=== PATIENT | male | born 1995 ===

== ENCOUNTER → 2024-06-24 17:06 | Outpatient (BNVA) | payer OTHER, SELFPAY | PROVIDERS: Visit Provider Family Medicine | DX: Z20.2 Contact with and (suspected) exposure to infections with a predominantly sexual mode of transmission (principal); Z72.51 High risk heterosexual behavior | CPT/HCPCS: 86592; 87491; 87591; 87661; 87806 ==

== ENCOUNTER 2025-02-07 12:49 | Emergency (ER) | payer OTHER, SELFPAY ==
--- OUTSIDE RECORDS SUMMARY | 2023-11-30 04:15 | XMS_ITS ---
Author Organization [facility] Address [address] [place] [address] Care Team Providers Care Water Rights Specialist Name Role Phone Higinio Levin MD Primary Care Provider Kristan Hernandez [phone] Encounters Encounter Location Date Provider Diagnosis [facility] [address] [place] [address], [place] [address] 11/30/2023 Kristan Butts Plan Of Treatment No Information Progress Notes * VANESSA RHOADESDOB:1995 (29 yo M)Acc No.[id number]:11/30/2023 Patient: VANESSA BUITRAGO Provider: Sharon Butts MD :1995 A ge:28 Y S ex:Male Date:11/30/2023 Address:[address] [place] [address], [id number] Pcp:Higinio Levin MD Check In:10:04 AM CSTCheck O ut:10:07 AM BRICK PITCHER * Electronic signature of Laura Butts MD on 02/07/2025 at 12:54 PM BRICK PITCHER Sign off status: Pending * Provider: Sharon Butts MD Date: Generated for Printi ng/Faxing/eTransmitting on: 1 04/10/2024 12:54 PM BRICK PITCHER
--- OUTSIDE RECORDS SUMMARY | 2023-12-21 09:00 | XMS_ITS ---
Author Organization [facility] Address [address] [facility] [place] [address] Care Team Providers Care Marker Hand Name Role Phone Higinio Levin MD Primary Care Provider Kristan Hernandez [phone] Encounters Encounter Location Date Provider Diagnosis [facility] [address] [place] [address], [place] [address] 12/21/2023 Kristan Butts Plan Of Treatment No Information Progress Notes * VANESSA RHOADESDOB:1995 (29 yo M)Acc No.[id number]:12/21/2023 Patient: VANESSA BUITRAGO Provider: Sharon Butts MD :1995 A ge:28 Y S ex:Male Date:12/21/2023 Address:[address] [place] [address], [id number] Pcp:Higinio Levin MD Check In:03:01 PM OPS ANALYST Billing Information: * Procedure Codes: * Electronic signature of Laura Butts MD on 02/07/2025 at 12:53 PM OPS ANALYST Sign off status: Pending * Provider: Sharon Butts MD Date: 02/19/2023 Generated for Janaki ng/Faxing/eTransmitting on: 04/10/2024 12:53 PM OPS ANALYST
--- OUTSIDE RECORDS SUMMARY | 2025-01-21 03:00 | XMS_ITS ---
Author Organization [facility] Main [place] [address] Care Team Providers Care Battalion Chief Name Role Phone WILBER TORRES Primary Care Provider REASON FOR VISIT LAST PE 01/18/24 Encounters Encounter Location Date Provider Diagnosis [facility] [place] [address] [place] [address] 01/21/2025 WILBER TORRES Plan Of Treatment Next Appt Details Provider Name:WILBER BABIN S, 03/07/2025 03:30:00 PM, [address], [place], [address], Progress Notes * Oswaldo ELAM LDOB:[birth year] (29 yo M)Acc No.[id number]:01/21/2025 Patient: Oswaldo BUITRAGO Provider: Sharon TORRES MD :1995 A ge:29 Y S ex:Male Date:01/21/2025 Address:[address] [place] [address], [place], [id number] Subjective: * Chief Complaints: * 1 . LAST PE 01/18/24. * Medical History: Objective: * Vitals: Assessment: Plan: * Treatment: * Billing Information: * Visit Code: * Procedure Codes: * Electronic signature of ANDVijay TORRES MD on 02/07/2025 at 12:53 PM GLOBAL ACCOUNT DIRECTOR Sign off status: Pending * Provider: Sharon TORRES MD Date: 1 03/24/2024 Generated for Gaby hazel/Keke/Jaylon on: 1 04/10/2024 12:53 PM GLOBAL ACCOUNT DIRECTOR
--- OUTSIDE RECORDS SUMMARY | 2025-02-07 12:54 | XMS_ITS | Data Portability ---
Author Organization [facility], [facility] Address [address] [place] [address] Care Team Providers Care Consulting Senior Practice Director Name Role Phone PCP NOT LISTED Primary Care Provider Unavailabl e Assessment No assessment recorded. Plan of Treatment Reminders Order Date Submit Date Provider Last Modified By Organization Details Last Modified Time Details Appointments None recorded. Lab None recorded. Referral None recorded. Procedures None recorded. Surgeries None recorded. Imaging None recorded. Medication Orders mupirocin 2 % topical ointment 2023 [facility] [facility] [place], [address], 12:15:22 Patient TargetsNo targets recorded. Patient Instructions Encounter Date Encounter Id Patient Instructions Last Modified By Organization Details Last Modified Time 06/18/2023 [id number] folliculitis: care instructions Not available 06/18/2023 12:15:15 Do not clean with alcohol or peroxide. Not available 06/18/2023 12:15:50 If symptoms do not improve within a week, follow up with PCP. If symptoms get worse, present to ER. Please read the Care Instructions document you were given at discharge for recommended home care instructions. Not available 06/18/2023 12:15:25 Reason for Referral None Reported. Problems No Known Problems Medical Equipment None Reported. Allergies No known drug allergies Medications Name Sig Start Date Stop Date Status Note LastModified by Organization Details LastModified Time mupirocin 2 % topical ointment APPLY A SMALL AMOUNT TO THE AFFECTED AREA BY TOPICAL ROUTE 3 TIMES PER DAY FOR A WEEK OR UNTIL RESOLVED 05/05/2 024 active Not Available Not Available Not Avai lable Vitals Date Recorded Body height Body mass index (BMI) Body weight Oxygen saturation Heart rate Respiratory rate Systolic And Diastolic Provider Name and Address Organization Details Last Updated DateTime 4 175.26 cm 23.6 kg/m2 21932.7 8 g 100 % 98 /min 16 /min 151/88 mm[Hg] Angelia Munoz PA - [facility] 11:54:25 Social History None recorded. Functional Status Question Answer Note LastModified by Organizat ion Details LastModified Time Do you use any illicit or recreational drugs? No [email or web address] Information not available 06/18/2023 Do you or have you ever used any other forms of tobacco or nicotine? No [email or web address] Information not available 06/18/2023 What is your level of alcohol consumption? None Information not available 06/18/2023 Mental Status None recorded. Family History Nothing Reported. Medical History No medical history recorded. Past Encounters Encounter ID Performer Location Encounter Start Date Encounter Closed Date Diagnosis/Indication Diagnosis SNOMED-CT Code Diagnosis ICD10 Code Diagnosis IMO Codes Diagnosis Note [id number] [facility] [facility] [address] [place] [address] 07/13/2020 13:02:15 07/13/2020 13:52:14 [id number] [facility] [place] [address] [facility] [place] [address] 01/19/2016 17:17:33 01/19/2016 17:38:03 [id number] 04001_Romy Dong [address] [facility] [address] [facility] [place] [address] 10/15/2020 13:25:43 10/15/2020 14:45:05 [id number] [place]JAR [place] [facility] [place], [place] [address] 06/18/2023 11:41:02 06/18/2023 12:17:00 Folliculitis 69101991 L73.9 Keep wound area clean and dry. Wash 2-3 times a day with antibacter ial soap (Dial) and water. Pat dry and apply thin film of antibacter ial ointment. May apply a bandaide as needed. Monitor for signs of infection (increased redness, pain, swelling, discharge, worsening) and be seen if this happens. Health Concerns Section Related Observation LastModified by Organization Detai ls LastModified Time None Recorded Concern Status LastModified by Organization Details LastModified Time None Recorded Advance Directives Directive None Recorded Payers Insurance Date Sequence Insurance Name Policy Number Policy Martins Covered Member ID Martins Member ID Guarantor Name 09/25/2023 1 [employer] - [employer] (PPO) [address] [place] [address] Oswaldo Reyes Marialuisa [id number] Oswaldo Elam 06/18/2023 1 R [id number] Geraldine Sanchez Marialuisa [id number] Oswaldo Elam Notes Date Note Type Note Provider Name and Address Organization Details Recorded Time 06/18/2023 text/html He has been doing a lot of outdoor work and has some bug bites on his lower legs, also has one on each of his upper medial thighs. He doesn't shave here, but is worried they may be folliculitis. BRAYAN ANDUJAR NP [address] [facility] [place], [address], [place] - [facility] 06/18/2023 12:16:14
--- OUTSIDE RECORDS SUMMARY | 2025-02-07 12:54 | XMS_ITS | Patient Health Record ---
Author Organization [facility] Address [address] [place] [address] Care Team Providers Care Accounting Machine Servicer Name Role Phone Higinio Levin MD Primary Care Provider Kristan Hernandez Unavailable [phone] Allergies Allergen (clinical drug ingredient) Drug/Non Drug Allergy documented on EMR Reaction Allergy Type Onset Date Status fluconazole Fluconazole Unknown Drug Allergy Act chun Reason For Referral No Information Medications Medication SIG (Take, Route, Frequency, Duration) Notes Start Date End Date Status Multi Adult Gummies - Tablet Chewable as directed Orally Active Vitamin D3 Active Fish Oil Active Social History Tobacco Use: Social History Observation Description Date Details (start date - stop date) Never Smoker NA - NA Social History Drugs/Alcohol: Social Info Question Answer Notes Caffeine Intake: 1-2 cups per day Tobacco Use: Social Info Question Answer Notes Tobacco Control (Standard) Tobacco use: Nonsmoker Additional Details Category Social Info Options Details Drugs/Alcohol: Do you drink alcohol? Yes, ocasional Problems Problem Type SNOMED Code ICD Code Onset Dates Problem Status W/U Status Risk Notes Problem Family history of coronary arteriosclerosis (593701133) Family history of coronary arteriosclerosis (Z82.49) Active confirmed Problem Chest pain (43701338) Chest pain (R07.9) Active confirmed Plan Of Treatment Pending Test Test Name Order Date Electrocardiogram (EKG) - 20406 11/23/19 24 Insurance Providers Payer Name Payer Address Payer Phone Subscriber Number Group Number Insured Name Patient Relationship to Insured Coverage Start Date Coverage End Date Web [facility] [address] [place] [address] [id number] [place] [address] VERONAVANESSA Self - patient is the insured Medical (General) History Medical History History ICD Code covid vacc tested postive for covid Surgical History Surgery Date(Month/Year) stent as a kid Hospitalization History Reason Date(Month/Year) - ekg, [place] 2023
--- OUTSIDE RECORDS SUMMARY | 2025-02-07 12:54 | XMS_ITS | Patient Health Record ---
Author Organization [facility] Main [place] [address] Care Team Providers Care Director Learning Services Name Role Phone WILBER TORRES Primary Care Provider [phone] Allergies No Known Allergies Reason For Referral No Information Social History Tobacco Use: Social History Observation Description Date Details (start date - stop date) Never Smoker NA - NA Tobacco Use/Smoking Question Answer Notes Tobacco use: nonsmoker Alcohol Screen (Audit-C) Question Answer Notes Did you have a drink contain ing alcohol in the past year? Yes How often did you have a dri nk containing alcohol in the past year? Monthly or less (1 point) How many drinks did you have on a typical day when you were drinking in the past year? 1 or 2 drinks (0 point) Points 1 Interpretation Negative PHQ 9 Question Answer Notes Little interest or pleasure in doing things Not at all Feeling down, depressed, or hopeless Not at all Trouble falling or staying asleep, or sleeping t oo much Not at all Feeling tired or having little energy Not at all Poor appetite or overeating More than half the d ays Feeling bad about yourself, or that you are a failure, or have let yourself or your family down Not at all Trouble concentrating on thi ngs, such as reading the newspaper or watching television Not at all Moving or speaking so slowly that other people could have noticed. 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 no tobacco, occ etoh, no illicits Problems Problem Type SNOMED Code ICD Code Onset Dates Problem Status W/U Status Risk Notes Problem Mixed anxiety and depressive disorder (011736353) Depression with anxiety (F41.8) Active confirmed Plan Of Treatment Next Appt Details Provider Name:WILBER Mik Zhang, 03/07/2025 03:30:00 PM, [address], [place], [address], Insurance Providers Payer Name Payer Address Payer Phone Subscriber Number Group Number Insured Name Patient Relationship to Insured Coverage Start Date Coverage End Date [facility] [address] [address] [place] [address] [phone] [id number] Oswaldo Elam Self - patient is the insured Medical (General) History Medical History History ICD Code Heart murmur R01.1 Depression with anxiety F41.8 Flu vaccine: Declined 01/18/2024 COVID vaccine: 2020 Tetanus vaccine: 09/2018 PHQ9: Score 4 on 01/18/2024 Surgical History Surgery Date(Month/Year) patent ductus arteriosus 1998
[2025-02-07 13:21] VITALS: BP 124/78; PULSE 76; RESP 14; TEMP 36.7; O2SAT 99; BMI 23.6
--- NOTE | 2025-02-07 13:40 | ED_ITS ---
HPI - Animal Bite General: Chief Complaint: Animal Bite Stated Complaint: dog bit (work comp) Time Seen by Provider: 02/07/25 13:29 Source: patient Mode of arrival: ambulatory Limitations: no limitations History of Present Illness: 21-year-old male states he is at work to day and a clients dog bit him on the right lower leg. Patient states he is unsure of the vaccination status of the dog does have an abrasion to his right lower leg he has no bleeding at this time he denies any pain denies any other injuries. Related Data Previous Rx's ?Medication ?Instructions ?Recorded amoxicillin 500 mg-potassium 1 tab PO BID #14 tabs clavulanate 125 mg tablet (Augmentin) Allergies Allergy/AdvReac Type Severity Reaction Status Date / Time fluconazole Allergy ALGY-Difficulty Verified 02/07/25 13:27 Breathing PFSH ED PFSH: Social History Smoking and tobacco/nicotine status: never used tobacco/nicotine Physical Exam Const: COMMON NORMALS: no acute distress, patient oriented x3 and healthy appearing HENMT: COMMON NORMALS: normocephalic and atraumatic HEAD & SCALP: normocephalic and atraumatic Neck/C-Spine: COMMON NORMALS: full ROM and supple Chest: COMMONS NORMALS: normal inspection of the chest Resp: COMMON NORMALS: normal respiratory effort Cardio: COMMON NORMALS: regular rate RATE: regular rate Extremity: COMMON NORMALS: full ROM Neuro: COMMON NORMALS: patient oriented x3, moves all extremities and no focal motor deficits Psych: COMMON NORMALS: mental status grossly normal, Normal thought process present and cooperative THOUGHT PROCESS: Normal thought process present Skin: COMMON NORMALS: no rashes or lesions noted NARRATIVE SKIN EXAM: Small abrasion noted to right lower leg from dog bite no laceration GENERAL SKIN EXAM: no rashes or lesions noted Course Vital Signs: Vital signs: Vital Signs Temperature 98.1 F 02/07/25 13:21 Pulse Rate 76 02/07/25 13:21 Respiratory Rate 14 02/07/25 13:21 Blood Pressure 124/78 02/07/25 13:21 Pulse Oximetry 99 02/07/25 13:21 Oxygen Delivery Me thod Room Air 02/07/25 13:21 MDM - Animal Bite Medical Decision Making Patient presents with dog bite to his right lower leg he has no laceration does not require sutures no signs of infection at this time he is up-to-date on his tetanus we will start him on the rabies prophylaxis will discharge him on Augmentin he is return if any worsening signs he understands agrees to plan. Medical Records I reviewed the patient's medical records. No radiology studies performed this visit Discharge Plan Discharge Patient Disposition: Home Clinical Impression: Dog bite Condition: Stable Prescriptions: New amoxicillin-pot clavulanate [Augmentin] 500-125 mg tablet 1 tab PO BID Qty: 14 0RF Discharge Orders: Discharge ED (Routine); Ordered 02/07/25 Ordered By: Anna Cavanaugh Referrals: Higinio Levin MD [Primary Care Provider, COVERSTITCH BINDER] Discharge Diet: Advance as tolerated Discharge Activity: Resume usual activity Patient Instructions: Animal Bite (ED) Print Language: Frisian Coding Level of Care Code ED Air Sampling And Monitoring for Boaz Busby
[2025-02-07] MEDS: rabies IG 300 unit/mL SDV 1 mL 1410 UNIT IM (14:26)
[2025-02-07] MEDS: rabies vaccine 2.5 unit SDV IM (14:28)
[2025-02-07 14:53] VITALS: BP 123/78; PULSE 73; O2SAT 100
== END 2025-02-07 14:54 | disposition home or self-care (01) ==
PROVIDERS: Emergency Provider Emergency Medicine; PCP Obstetrics & Gynecology
DX: S80.811A Abrasion, right lower leg, initial encounter (principal); W54.0XXA Bitten by dog, initial encounter; Z20.3 Contact with and (suspected) exposure to rabies; Z29.14 Encounter for prophylactic rabies immune globulin
CPT/HCPCS: 90375; 90675; 96372; 99283

== ENCOUNTER 2025-02-10 14:24 | Oncology outpatient (recurring) (ONCR) | payer OTHER, SELFPAY ==
[2025-02-10] MEDS: rabies vaccine 2.5 unit SDV IM (15:05)
== END 2025-02-12 23:59 | disposition home or self-care (01) ==
PROVIDERS: PCP Obstetrics & Gynecology; Visit Provider Emergency Medicine
DX: Z23 Encounter for immunization (principal); Z20.3 Contact with and (suspected) exposure to rabies; W54.0XXA Bitten by dog, initial encounter; Y99.0 Civilian activity done for income or pay
CPT/HCPCS: 90471; 90675